=== PATIENT | female | born 1960 | race Caucasian/White ===

== ENCOUNTER 2022-01-07 09:30 | Emergency (ER) | payer OTHER ==
[~2022-01-07] VITALS: Ht 157.5 cm; Wt 79.5 kg
[2022-01-07] MEDS ORDERED: METOCLOPRAMIDE INJ 10MG/2ML VIAL (J2765 PER 1) IV ONE (09:45)
[2022-01-07] MEDS ORDERED: diphenhydrAMINE 50MG/ML VIAL (J1200) IV STA (09:45)
[2022-01-07] MEDS ORDERED: NS 1,000 ML IV ONE (09:50)
[2022-01-07] MEDS ORDERED: ATOR1TAB19 PO (09:59)
[2022-01-07] MEDS ORDERED: BUPR75TA5 PO (09:59)
[2022-01-07] MEDS ORDERED: SING10TA32 PO (09:59)
[2022-01-07] MEDS ORDERED: KETOROLAC 30 MG/ML 1ML VIAL IV ONE (10:25)
[2022-01-07 11:00] VITALS: BP 168/79
== END 2022-01-07 11:15 | disposition home or self-care (01) ==
LOC: M ED 09:30
DX: R51.9 Headache, unspecified (principal); J45.909 Unspecified asthma, uncomplicated
CPT/HCPCS: 70450; 96361; 96374; 96375; 99284; J1200; J1885; J2765